=== PATIENT | female | born 1960 | race Caucasian/White ===

== ENCOUNTER 2017-05-17 07:13 | Day surgery (SDC) | payer OTHER ==
[2017-05-16 11:18] LABS: HEMATOCRIT 39.7 % (36.0-48.0); HEMOGLOBIN 12.9 g/dL (12-16); MCH 29.9 pg (26.0-34.0); MCHC 32.5 g/dL (31.0-37.0); MCV 92.1 fL (80.0-100.0); MEAN PLATELET VOLUME 9.1 fL (7.4-10.4); RBC 4.31 10x6/uL (4.00-5.40)
[2017-05-16 11:31] LABS: CALC OSMOLALITY 285 mosm/kg (275-300); CALCIUM 9.1 mg/dL (8.5-10.1); CHLORIDE - SERUM 98 mmol/L (98-107); CREATININE - SERUM 0.8 mg/dL (0.6-1.3); GLUCOSE 352 mg/dL (74-106); POTASSIUM - SERUM 4.3 mmol/L (3.5-5.1); SODIUM 136 mmol/L (136-145); UREA NITROGEN 13 mg/dL (7-18); eGFR NON AFRICAN AMERICAN 79 mL/min (90-120)
[~2017-05-17] VITALS: Ht 165.1 cm; Wt 92.5 kg
[~2017-05-17 07:13] MED LIST: CATAPRES0.1 MG PO; COREG 3.1253.125 MG PO; COZAAR100 MG PO; EFFEXOR XR150 MG PO; ELIQUIS5 MG PO; IBUPROFEN800 MG PO; LIPITOR20 MG PO; MULTIPLE VITAMI1 TA1 PO; NEURONTIN600 MG PO; RIOMET500 MG/5 M PO; TRICOR145 MG PO; ULTRAM50 MG PO; ZYPREXA15 MG PO
[2017-05-17 11:51] VITALS: Ht 165.1 cm; Wt 92.5 kg
[2017-05-17] MEDS ORDERED: HYDROXYZINE HCL50 MG PO (15:31)
[2017-05-17] MEDS ORDERED: PERCOCET 5-3251 TAB PO (15:31)
--- NOTE | 2017-05-17 16:20 | NUR ---
1615 BACK FROM LEFT SHOULDER SURGERY. DRESSING X 22 C/D/I ARM IN SLING ELEVATED AND ICED.
--- NOTE | 2017-05-17 20:47 | NUR ---
7002 PATIENT VERY SLEEPY BUT EASILY ROUSES. LEFT ARM IN SLING ICED DRESSING X 2 C/D/I.
--- NOTE | 2017-05-17 20:51 | NUR ---
1730 IV DCD CATHETER INTACT. WENT OVER DISCHARGE INSTRUCTIONS AND VERBALLY UNDERSTANDS. WENT OVER FOLLOW UP APPOINTMENT BLOCK INFORMATION SCRIPT AND ICE ELEVATED AND KEEP ARM IN SLING. ICE AND ELEVATE. INSTRUCTED ON SHOULDER INSTRUCTIONS AND DISCHARGE SHEET.
--- NOTE | 2017-05-17 20:53 | NUR ---
1740 TO HOME VIA W/C ACCOMPANIED BY DR. SANTOS.
--- NOTE | 2017-05-18 10:00 | OP ---
PATIENT NAME: NANI PAREDES MEDICAL RECORD: [id number] :64 LOCATION:D.OPS ADMISSION DATE: SURGEON: OLENA SANTOS DO DATE OF OPERATION: 05/17/2017 PROCEDURES PERFORMED: Left shoulder arthroscopy with subacromial decompression and biceps tenodesis. PREOPERATIVE DIAGNOSES: Superior labrum anterior to posterior tear, left shoulder impingement. POSTOPERATIVE DIAGNOSES: Superior labrum anterior to posterior tear, left shoulder impingement. INDICATIONS: Ms. Paredes is a 57-year-old female who has had left shoulder pain for quite some time. She is lifting something and felt a pop in her upper arm. Once this was done, she has had pain. She had an MRI and injections. MRI showed impingement and possible SLAP tear and a possible small partial thickness rotator cuff tear. She had injections and wanted some therapy and started to develop pain and so she wanted something done to solve the problem, so she was consented for the surgery in the office. SURGEON: Olena Santos DO COMPLICATIONS: None. BLOOD LOSS: Minimal. DESCRIPTION OF PROCEDURE: The patient received a block in the preoperative area. The patient was then taken to the operative suite, given general anesthetic 900 mg clindamycin for antibiotics. A timeout was performed and everyone was in agreement with the correct site, side, and the patient. The left upper extremity was then prepped and draped in sterile fashion and she was put in a right lateral decubitus position with the left shoulder up. All bony prominences were well padded and axillary roll was used at this time as well and beanbag was inflated to secure her in place. The surgery then began having the shoulder injected with 60 mL of saline. Posterior portal was then started with a #11 blade scalpel, seen to be a little too lateral. A second portal was little more medial. We then utilized and gained access to the shoulder joint itself. The scope was entered into the shoulder joint. Anterior portal was then established. A large SLAP tear was seen about the 10 to 2 o'clock position and biceps tendon had some fraying. I did a tenotomy at that time of the biceps tendon. The subscapularis tendon was inspected and seen to be in good condition as well as the supraspinatus and infraspinatus and there were no cartilage defects in the joint itself and no loose bodies were seen. Once this was done and inspection was complete, we then entered the subacromial space. Decompression was done at that time including soft tissue and bony. The anterolateral acromion was burred off. The AC joint was exposed and not seen to have a bony or joint space at that time, so distal clavicle excision was not done. After this was done, the rotator cuff was cleaned off as well with the shaver. All the subacromial bursa was removed and there were no tears seen in the rotator cuff. The arm was rotated internally and externally to inspect the whole cuff. Scope was then withdrawn and an incision was then made on the anterior arm about where the pectoralis major tendon insertion on the humerus. Careful dissection was made down to the biceps tendon where it comes just distal OPERATIVE REPORT [id number] NANI PAREDES to the bicipital groove and was taken out of there with a 90-degree hemostat and the Allis was used to clamp the end of it. Then, a whip-stitch was used to suture the tendon and a button was placed on that. A drill was used to put the hole in, just the anterior single cortex of the humerus and the button was pushed down into that hole and then the tendon was cinched down to that button and then a free needle was used through the bicep tendon itself and that was tied down securing the tendon to the button. The excess tendon and suture were then cut with a knife. The incision site was thoroughly irrigated at that time and then closed with 2-0 Vicryl in an inverted interrupted fashion, 4-0 Monocryl was ran under the subcuticular and skin. The portal sites anteriorly and laterally and posteriorly were closed with 4-0 Monocryl in an inverted interrupted fashion. Dermabond was placed over each of the sites. The patient was awakened and taken to the recovery room in stable condition. TRANSINT:[id number] Voice Confirmation ID: [id number] DOCUMENT ID: [id number] OLENA SANTOS DO at 1000 CC: [id number] DICTATION DATE: 05/17/17 1538 AMBULETTE DRIVER: 05/17/[address] [facility] 05/17/17 [id number] [place] [address]
== END 2017-05-17 17:40 | disposition home or self-care (01) ==
LOC: D.OPS 07:13 → D.PAN 10:55 → D.OPS 11:00 → D.PAN 11:40 → D.OPS 11:40 → D.PAN 11:45 → D.OPS 11:45
PROVIDERS: Anesthesiology
DX: M75.102 Unspecified rotator cuff tear or rupture of left shoulder, not specified as traumatic (principal); S43.432A Superior glenoid labrum lesion of left shoulder, initial encounter; X58.XXXA Exposure to other specified factors, initial encounter; M25.812 Other specified joint disorders, left shoulder; I10 Essential (primary) hypertension; E11.9 Type 2 diabetes mellitus without complications; G47.30 Sleep apnea, unspecified; Z01.812 Encounter for preprocedural laboratory examination

== ENCOUNTER 2017-08-02 17:10 | Emergency (ER) | payer OTHER ==
[2017-05-17 11:51] VITALS: BMI 34.0
[~2017-08-02 17:10] MED LIST changes: +HYDROXYZINE HCL50 MG PO; +PERCOCET 5-3251 TAB PO
[2017-08-02 19:50] LABS: APPEARANCE CLEAR (CLEAR); BILIRUBIN NEGATIVE (NEGATIVE); COLOR YELLOW (YELLOW); GLUCOSE 1000 mg/dL (NEGATIVE); KETONE NEGATIVE (NEGATIVE); NITRITE NEGATIVE (NEGATIVE); PROTEIN NEGATIVE (NEGATIVE); UROBILINOGEN NORMAL (NORMAL)
[2017-08-02 19:57] LABS: BASOPHILS 0.2 % (0-2); EOSINOPHILS 1.5 % (0-7); HEMATOCRIT 38.2 % (36.0-48.0); HEMOGLOBIN 12.4 g/dL (12-16); IMMATURE GRANULOCYTES 0.5 % (0-5); LYMPHOCYTES 21.3 % (15-50); MCH 29.5 pg (26.0-34.0); MCHC 32.5 g/dL (31.0-37.0); MEAN PLATELET VOLUME 9.5 fL (7.4-10.4); MONOCYTES 7.6 % (2-11); NEUTROPHILS 68.9 % (40-80); PLATELET COUNT 198 10x3/uL (130-400); WBC 12.6 10x3/uL (4.8-10.8)
[2017-08-02 19:58] LABS: KETONE - SERUM NEGATIVE (NEGATIVE)
[2017-08-02 20:04] LABS: ALBUMIN 3.4 g/dL (3.4-5.0); ALKALINE PHOSPHATASE 118 U/L (46-116); ALT (SGPT) 47 U/L (10-68); BILIRUBIN - TOTAL 0.28 mg/dL (0.2-1.3); CALC OSMOLALITY 286 mosm/kg (275-300); CALCIUM 9.7 mg/dL (8.5-10.1); CARBON DIOXIDE 28.6 mmol/L (21.0-32.0); CHLORIDE - SERUM 97 mmol/L (98-107); GLUCOSE 382 mg/dL (74-106); POTASSIUM - SERUM 4.2 mmol/L (3.5-5.1); SODIUM 134 mmol/L (136-145); UREA NITROGEN 22 mg/dL (7-18); eGFR NON AFRICAN AMERICAN 61 mL/min (90-120)
== END 2017-08-03 04:37 | disposition home or self-care (01) ==
LOC: D.ER 17:10
PROVIDERS: Nurse Practitioner Family
DX: E11.65 Type 2 diabetes mellitus with hyperglycemia (principal); E86.0 Dehydration

== ENCOUNTER → 2018-01-09 14:21 | Outpatient (CLI) | payer OTHER ==
[2017-05-17 11:51] VITALS: BMI 34.0
== END | disposition home or self-care (01) ==
LOC: D.LAB 14:21
DX: K52.9 Noninfective gastroenteritis and colitis, unspecified (principal)

== ENCOUNTER → 2018-07-17 09:22 | Outpatient (CLI) | payer OTHER ==
[2017-05-17 11:51] VITALS: BMI 34.0
[2018-07-17 10:18] LABS: BASOPHILS 0.3 % (0-2); EOSINOPHILS 1.7 % (0-7); HEMATOCRIT 39.9 % (36.0-48.0); HEMOGLOBIN 12.9 g/dL (12-16); IMMATURE GRANULOCYTES 0.6 % (0-5); LYMPHOCYTES 23.5 % (15-50); MCH 29.8 pg (26.0-34.0); MCHC 32.3 g/dL (31.0-37.0); MCV 92.1 fL (80.0-100.0); MEAN PLATELET VOLUME 9.2 fL (7.4-10.4); MONOCYTES 6.1 % (2-11); NEUTROPHILS 67.8 % (40-80); PLATELET COUNT 194 10x3/uL (130-400); RBC 4.33 10x6/uL (4.00-5.40); RDW 13.5 % (11.5-14.5); WBC 9.5 10x3/uL (4.8-10.8)
[2018-07-17 10:29] LABS: INR 1.02 (0.85-1.17); PROTIME 12.9 SECONDS (11.6-15.0)
[2018-07-17 10:30] LABS: % SATURATION 19 % (15-55); IRON 63 ug/dl (35-150); TOTAL IRON BIND CAPACITY 318 ug/dl (260-445); UNSAT IRON BIND CAPACITY 255 ug/dl (150-375)
[2018-07-17 10:45] LABS: ALBUMIN 3.3 g/dL (3.4-5.0); ALKALINE PHOSPHATASE 156 U/L (46-116); ALT (SGPT) 79 U/L (10-68); BILIRUBIN - DIRECT 0.07 mg/dL (0.00-0.30); BILIRUBIN - INDIRECT 0.19 mg/dL (0.00-1.00); BILIRUBIN - TOTAL 0.26 mg/dL (0.2-1.3); CALC OSMOLALITY 285 mosm/kg (275-300); CALCIUM 8.4 mg/dL (8.5-10.1); CHLORIDE - SERUM 102 mmol/L (98-107); CHOL - HDL RATIO 3.9 ratio (2.3-4.1); CHOLESTEROL, TOTAL 141 mg/dL (0-200); CREATININE - SERUM 0.7 mg/dL (0.6-1.3); FERRITIN 107 ng/mL (3-244); GAMMA GT 163 U/L (5-85); GLUCOSE 221 mg/dL (74-106); HDL CHOLESTEROL 36 mg/dL (32-96); LDL CHOLESTEROL 75 mg/dL (0-100); LDL-HDL RATIO 2.1 ratio (1.5-3.5); POTASSIUM - SERUM 4.1 mmol/L (3.5-5.1); PROTEIN - SERUM 8.3 g/dL (6.4-8.2); SODIUM 140 mmol/L (136-145); TRIGLYCERIDE 150 mg/dL (30-200); UREA NITROGEN 13 mg/dL (7-18); eGFR NON AFRICAN AMERICAN > 90 mL/min (90-120)
[2018-07-18 07:31] LABS: HEPATITIS C ANTIBODY <0.1 S/CO RAT (0.0-0.9)
[2018-07-18 08:22] LABS: HAPTOGLOBIN 223 mg/dL (34-200)
[2018-07-18 09:18] LABS: FOLATE (FOLIC ACID) - SERUM 9.9 ng/mL (>3.0)
[2018-07-18 11:20] LABS: ANA REFLEX - DIRECT Negative (Negative)
[2018-07-18 13:17] LABS: ALPHA FETOPROTEIN -(TUMOR MRK) 2.3 ng/mL (0.0-8.3)
[2018-07-20 20:06] LABS: MITOCHONDRIAL ANTIBODY <20.0 Units (0.0-20.0); SMOOTH MUSCLE ABS (ACTIN) 11 Units (0-19)
== END | disposition home or self-care (01) ==
LOC: D.MRI 09:22
PROVIDERS: Internal Medicine Gastroenterology
DX: R94.5 Abnormal results of liver function studies (principal); R74.8 Abnormal levels of other serum enzymes

== ENCOUNTER 2018-09-15 08:00 | Outpatient (CLI) | payer OTHER ==
[2017-05-17 11:51] VITALS: BMI 34.0
== END 2018-09-15 09:00 | disposition home or self-care (01) ==
LOC: D.MAMMO 08:00
PROVIDERS: ATTEND Family Medicine Adult Medicine
DX: Z12.31 Encounter for screening mammogram for malignant neoplasm of breast (principal)